=== PATIENT | female | born 1960 ===

== ENCOUNTER 2017-09-26 10:24 | Outpatient (CLI) | payer BC ==
[~2017-09-26 10:24] MED LIST: NEURONTIN300 MG PO; POLY119PG PO; ULTRACET PO
== END 2017-09-26 15:54 | disposition home or self-care (01) ==
LOC: MAMO-SONO 10:24
DX: Z12.31 Encounter for screening mammogram for malignant neoplasm of breast (principal); N64.4 Mastodynia

== ENCOUNTER 2017-09-26 10:50 | Outpatient (CLI) | payer BC | END 2017-09-26 15:54 | disposition home or self-care (01) | LOC: RAD 10:50 | DX: M19.071 Primary osteoarthritis, right ankle and foot (principal); M19.072 Primary osteoarthritis, left ankle and foot ==

== ENCOUNTER 2019-03-07 14:35 | Outpatient (CLI) | payer BC | END 2019-03-07 17:00 | disposition home or self-care (01) | LOC: MAMO-SONO 14:35 | DX: Z12.31 Encounter for screening mammogram for malignant neoplasm of breast (principal); N60.11 Diffuse cystic mastopathy of right breast; N60.12 Diffuse cystic mastopathy of left breast ==

== ENCOUNTER 2019-06-06 11:01 | Outpatient (CLI) | payer BC | END 2019-06-06 11:13 | disposition home or self-care (01) | LOC: NUCLEAR 11:01 | DX: M81.0 Age-related osteoporosis without current pathological fracture (principal) ==

== ENCOUNTER 2021-03-02 08:05 | Outpatient (CLI) | payer BC | END 2021-03-02 08:06 | disposition home or self-care (01) | LOC: MAMO-SONO 08:05 | PROVIDERS: ATTEND Internal Medicine | DX: E03.8 Other specified hypothyroidism (principal); E04.1 Nontoxic single thyroid nodule; N60.11 Diffuse cystic mastopathy of right breast; N60.12 Diffuse cystic mastopathy of left breast; N64.59 Other signs and symptoms in breast; Z12.31 Encounter for screening mammogram for malignant neoplasm of breast ==

== ENCOUNTER 2023-10-09 10:08 | Outpatient (CLI) | payer BC | END 2023-10-09 15:55 | disposition home or self-care (01) | LOC: TOM 10:08 | PROVIDERS: ATTEND Internal Medicine | DX: K57.92 Diverticulitis of intestine, part unspecified, without perforation or abscess without bleeding (principal) ==

== ENCOUNTER 2023-10-23 08:31 | Outpatient (CLI) | payer BC | END 2023-10-25 13:56 | disposition home or self-care (01) | LOC: TOM 08:31 | PROVIDERS: ATTEND Internal Medicine Gastroenterology | DX: K57.92 Diverticulitis of intestine, part unspecified, without perforation or abscess without bleeding (principal) ==

== ENCOUNTER 2024-05-16 08:45 | Outpatient (CLI) | payer BC | END 2024-05-16 08:48 | disposition home or self-care (01) | LOC: MAMO-SONO 08:45 | PROVIDERS: ATTEND Obstetrics & Gynecology Maternal & Fetal Medicine | DX: N63 Unspecified lump in breast (principal); Z12.31 Encounter for screening mammogram for malignant neoplasm of breast; N64.4 Mastodynia; N60.11 Diffuse cystic mastopathy of right breast ==

== ENCOUNTER 2024-08-19 09:23 | Outpatient (CLI) | payer BC | END 2024-08-19 09:29 | disposition home or self-care (01) | LOC: SONOGRAMA 09:23 | PROVIDERS: ATTEND Internal Medicine Gastroenterology | DX: R16.1 Splenomegaly, not elsewhere classified (principal) ==

== ENCOUNTER 2025-05-25 10:34 | Outpatient (CLI) | payer OTHER | END 2025-05-27 08:32 | disposition home or self-care (01) | LOC: MAMO-SONO 10:34 | PROVIDERS: ATTEND Obstetrics & Gynecology Maternal & Fetal Medicine | DX: N63.10 Unspecified lump in the right breast, unspecified quadrant (principal); Z12.31 Encounter for screening mammogram for malignant neoplasm of breast ==